=== PATIENT | male | born 1960 | race Caucasian/White ===

== ENCOUNTER → 2017-08-25 | Outpatient (CLI) | payer OTHER | LOC: FIMAGING 10:08 | PROVIDERS: ATTEND Psychiatry & Neurology Neurology | DX: M51.26 Other intervertebral disc displacement, lumbar region (principal); M51.27 Other intervertebral disc displacement, lumbosacral region; M89.38 Hypertrophy of bone, other site; M99.73 Connective tissue and disc stenosis of intervertebral foramina of lumbar region ==